=== PATIENT | male | born 1965 | race African-American/Black ===

== ENCOUNTER → 2022-08-18 | Day surgery (SDC) | payer OTHER ==
[~2022-08-18] MED LIST: ATORVASTATIN CA20 MG PO; CLARITIN-D 241 EACH PO; DILTIAZEM 24HR180 M1 PO; HYGROTON25 MG PO; LACTATED RINGER'S 1,000 ML ONE; LIDOCAINE HCL 2% LOCAL INJ 5 ML SDV VIAL INJ ONE; LISINOPRIL10 MG PO; METFORMIN HCL500 MG PO; POVIDONE IODINE 0.05% 0.05 % ML PO ONE; PROPOFOL IV EMULSION 10 MG/ML 20 ML VIAL ONE; SENNA LAX8.6 MG PO; UNITHROID50 MCG PO
[2022-08-18 09:50] VITALS: BP 111/45; PULSE 49; RESP 16; O2SAT 98
== END | disposition home or self-care (01) ==
LOC: OR 06:39
PROVIDERS: ATTEND Internal Medicine Gastroenterology
DX: Z12.11 Encounter for screening for malignant neoplasm of colon (principal); K64.8 Other hemorrhoids; G47.33 Obstructive sleep apnea (adult) (pediatric); E11.9 Type 2 diabetes mellitus without complications; I10 Essential (primary) hypertension; E78.5 Hyperlipidemia, unspecified; E03.9 Hypothyroidism, unspecified; E66.01 Morbid (severe) obesity due to excess calories; Z01.810 Encounter for preprocedural cardiovascular examination; Z79.84 Long term (current) use of oral hypoglycemic drugs; Z79.899 Other long term (current) drug therapy; Z68.43 Body mass index [BMI] 50.0-59.9, adult; Z86.11 Personal history of tuberculosis
CPT/HCPCS: 45378; 93005; J2001